=== PATIENT | female | born 1950 | race Two or more races ===

== ENCOUNTER → 2017-11-29 | Outpatient (CLI) | payer OTHER | END | disposition home or self-care (01) | LOC: MAMO-SONO 13:55 | DX: Z12.31 Encounter for screening mammogram for malignant neoplasm of breast (principal); N64.4 Mastodynia ==

== ENCOUNTER 2019-03-26 12:50 | Outpatient (CLI) | payer OTHER | END 2019-03-26 12:58 | disposition home or self-care (01) | LOC: MAMO-SONO 12:50 | DX: N64.4 Mastodynia (principal); Z12.31 Encounter for screening mammogram for malignant neoplasm of breast; Z87.898 Personal history of other specified conditions ==

== ENCOUNTER 2020-06-16 13:29 | Outpatient (CLI) | payer OTHER | END 2020-06-16 13:41 | disposition home or self-care (01) | LOC: MAMO-SONO 13:29 | PROVIDERS: ATTEND Obstetrics & Gynecology | DX: Z12.31 Encounter for screening mammogram for malignant neoplasm of breast (principal); N64.4 Mastodynia ==

== ENCOUNTER 2021-06-20 11:08 | Outpatient (CLI) | payer OTHER | END 2021-06-20 11:16 | disposition home or self-care (01) | LOC: MAMO-SONO 11:08 | PROVIDERS: ATTEND Obstetrics & Gynecology | DX: N64.4 Mastodynia (principal) ==

== ENCOUNTER 2021-08-18 08:46 | Day surgery (SDC) | payer OTHER ==
[~2021-08-18 08:46] MED LIST: AMLODI PO; ATORVASTATIN CA10 MG PO; DIOVAN160 M1 PO; PROMETRIUM200 MG PO; ZANAFLEX2 M1 PO
== END 2021-08-18 16:25 | disposition home or self-care (01) ==
LOC: CIR.AMB 08:46
PROVIDERS: ATTEND Orthopaedic Surgery
DX: M75.121 Complete rotator cuff tear or rupture of right shoulder, not specified as traumatic (principal); M75.21 Bicipital tendinitis, right shoulder; M25.111 Fistula, right shoulder; Z20.822 Contact with and (suspected) exposure to COVID-19; Z88.0 Allergy status to penicillin; I10 Essential (primary) hypertension; Z86.16 Personal history of COVID-19; Z99.89 Dependence on other enabling machines and devices; G47.33 Obstructive sleep apnea (adult) (pediatric); E66.9 Obesity, unspecified

== ENCOUNTER 2023-05-15 13:38 | Outpatient (CLI) | payer OTHER | END 2023-05-15 13:42 | disposition home or self-care (01) | LOC: MAMO-SONO 13:38 | PROVIDERS: ATTEND Internal Medicine | DX: Z12.31 Encounter for screening mammogram for malignant neoplasm of breast (principal) ==

== ENCOUNTER 2025-01-19 09:53 | Outpatient (CLI) | payer OTHER | END 2025-01-19 10:00 | disposition home or self-care (01) | LOC: MAMO-SONO 09:53 | DX: N60.11 Diffuse cystic mastopathy of right breast (principal); N60.12 Diffuse cystic mastopathy of left breast; Z12.31 Encounter for screening mammogram for malignant neoplasm of breast ==